=== PATIENT | male | born 1985 | race African-American/Black ===

== ENCOUNTER 2023-03-17 08:31 | Emergency (ER) | payer OTHER ==
[2023-03-17 08:48] VITALS: BP 116/74; PULSE 56; RESP 18; TEMP 98.1; BMI 22.1
[2023-03-17] MEDS ORDERED: IBUPROFEN 600 MG TABLET (FP) PO ONE ×2 (09:11→09:16)
== END 2023-03-17 10:15 | disposition home or self-care (01) ==
LOC: JERFT 08:31
DX: M79.675 Pain in left toe(s) (principal); W22.01XA Walked into wall, initial encounter
CPT/HCPCS: 73630-TC-LT; 99283-25